=== PATIENT | female | born 2000 | race Caucasian/White ===

== ENCOUNTER 2021-10-23 19:09 | Emergency (ER) | payer OTHER ==
[~2021-10-23] VITALS: Ht 180.3 cm; Wt 113.6 kg
[2021-10-23 19:19] VITALS: TEMP 98.5
[2021-10-23 19:51] LABS: BASO # 0.1 K/mm3 (0.0-0.2); BASO % 0.5 % (0.0-2.0); EOS # 0.1 K/mm3 (0.0-0.7); GRAN # 10.1 K/mm3 (1.4-6.5); GRAN % 80.3 % (42.2-75.2); HEMATOCRIT 44.9 % (35.0-45.0); HEMOGLOBIN 15.3 g/dl (12.0-15.0); LYMPH # 1.3 K/mm3 (1.2-3.4); LYMPH % 10.1 % (20.0-51.0); MEAN CELL VOLUME 86 fl (80.0-95.0); MEAN CORPUSCULAR HEMOGLOBIN 29 pg (26-32); MEAN CORPUSCULAR HGB CONC 34 g/dl (33.0-37.0); MEAN PLATELET VOLUME 9.6 fl (7.4-10.4); MONO % 7.9 % (1.7-9.3); PLATELET COUNT 314 K/mm3 (130-400); RED BLOOD COUNT 5.24 M/mm3 (4.10-5.30); REDCELL DISTRIBUTION WIDTH-CV 11.9 % (11.5-14.5)
[2021-10-23 20:08] LABS: COLLECTION METHOD CLEAN CATCH
[2021-10-23 20:10] LABS: ALBUMIN 4.2 gm/dL (3.5-5.0); BILIRUBIN,TOTAL 0.6 mg/dL (0.2-1.2); C-REACTIVE PROTEIN 2.72 mg/dL (0.00-0.50); CALCIUM 9.2 mg/dL (8.4-10.2); CREATININE, serum 0.89 mg/dL (0.57-1.11); POTASSIUM 3.6 mmol/L (3.5-4.5)
[2021-10-23 20:20] LABS: MUCOUS Present (NOT PRESENT); PH 5 (5-8); URINE APPEARANCE Hazy (CLEAR/HAZY); URINE BACTERIA Rare /hpf (NONE SEEN); URINE BILIRUBIN Negative (NEGATIVE); URINE BLOOD Negative (NEGATIVE); URINE COLOR Yellow (YELLOW); URINE GLUCOSE Negative (NEGATIVE); URINE KETONE Trace (NEGATIVE); URINE LEUKOCYTE ESTERASE 1+ (NEGATIVE); URINE NITRATE Negative (NEGATIVE); URINE PROTEIN(semi-quant) 1+ (NEGATIVE); URINE UROBILINOGEN Negative (NEGATIVE)
[2021-10-23] MEDS ORDERED: ZOFRAN ODT4 MG PO (23:00)
[2021-10-23 23:20] VITALS: BP 118/61; PULSE 80
== END 2021-10-23 23:25 | disposition home or self-care (01) ==
LOC: COL.ER 19:09
PROVIDERS: Nurse Practitioner
DX: R10.84 Generalized abdominal pain (principal); R11.2 Nausea with vomiting, unspecified; R19.7 Diarrhea, unspecified; Z32.02 Encounter for pregnancy test, result negative
CPT/HCPCS: J1885; J2405; J7030; Q9967